=== PATIENT | male | born 1990 | race American Indian/Alaskan Native ===

== ENCOUNTER 2019-11-17 21:13 | Emergency (ER) | payer OTHER ==
[2019-11-18] MEDS ORDERED: HYDROmorphone 1 MG/1 ML INJ IV ONE ×2 (00:14→01:33)
[2019-11-18] MEDS ORDERED: SODIUM CHLORIDE 0.9% 1000 ML 1,000 ML IV ONE (00:14)
[2019-11-18] MEDS ORDERED: ONDANSETRON 4 MG/2 ML INJ IV ONE (00:14)
[2019-11-18] MEDS ORDERED: ACETAMINOPHEN 500 MG TAB PO ONE (00:15)
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
[2019-11-18 01:18] VITALS: BP 137/79
[2019-11-18 01:30] LABS: Basophils % (Auto) 0.3 % (0.0-1.8); Eosinophils # (Auto) 0.1 K/mm3 (0.0-0.4); Eosinophils % (Auto) 0.8 % (0.0-4.3); Hematocrit 40.4 % (35.5-45.6); Hemoglobin 13.5 gm/dl (11.8-15.2); Lymphocytes # (Auto) 1.8 K/mm3 (1.2-5.4); Lymphocytes % (Auto) 14.1 % (13.4-35.0); Mean Corpuscular HGB Conc 34 % (32-34); Mean Corpuscular Volume 91 fl (84-94); Monocytes # (Auto) 1.1 K/mm3 (0.0-0.8); Monocytes % (Auto) 8.9 % (0.0-7.3); Platelet Count 169 K/mm3 (140-440); Red Blood Count 4.45 M/mm3 (3.65-5.03); Red Cell Distribution Width 13.5 % (13.2-15.2)
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
[2019-11-18] MEDS ORDERED: KETOROLAC 30 MG/1 ML INJ IV ONE (01:52)
[2019-11-18] MEDS ORDERED: fentaNYL 100 MCG/2 ML INJ IV ONE (01:52)
[2019-11-18 01:53] LABS: Creatine Kinase MB 5.6 ng/mL (0.0-4.0)
[2019-11-18 01:54] LABS: Alanine Aminotransferase 33 units/L (7-56); Albumin 3.7 g/dL (3.9-5); BUN/Creatinine Ratio 13; Blood Urea Nitrogen 10 mg/dL (9-20); Calcium 8.4 mg/dL (8.4-10.2); Hemolysis Index 8
== END 2019-11-18 02:59 | disposition home or self-care (01) ==
LOC: ED 21:13
DX: S16.1XXA Strain of muscle, fascia and tendon at neck level, initial encounter (principal); S20.219A Contusion of unspecified front wall of thorax, initial encounter; S09.90XA Unspecified injury of head, initial encounter; F07.81 Postconcussional syndrome; R10.9 Unspecified abdominal pain; J45.909 Unspecified asthma, uncomplicated; F17.200 Nicotine dependence, unspecified, uncomplicated; Z79.899 Other long term (current) drug therapy; V49.49XA Driver injured in collision with other motor vehicles in traffic accident, initial encounter; Y93.89 Activity, other specified; Y92.410 Unspecified street and highway as the place of occurrence of the external cause; Y99.8 Other external cause status
CPT/HCPCS: 36415; 70450; 71275; 72125; 74177; 80053; 82550; 82553; 84484; 85025; 86850; 86900; 86901; 87400; 93005; 93010; 96361; 96374; 96375; 99284; J1170; J2405; J3010; J7030; Q9967